=== PATIENT | male | born 1960 | race Caucasian/White ===

== ENCOUNTER 2017-10-28 19:00 | Inpatient (IN) | payer MEDICARE, MEDICAID ==
[~2017-10-28] VITALS: Ht 172.7 cm; Wt 68.7 kg
[2017-10-28 18:48] VITALS: BP 112/64
[2017-10-28] MEDS ORDERED: HALOPERIDOL 5 MG TABLET PO PRN (20:15)
[2017-10-28] MEDS ORDERED: LORazepam 2 MG TABLET PO PRN (20:15)
[2017-10-28] MEDS ORDERED: ZOLPIDEM TARTRATE 10 MG TABLET PO PRN (20:15)
[2017-10-28] MEDS ORDERED: PALI3TAB5 PO (21:15)
[2017-10-28] MEDS ORDERED: BENA10TA3 PO (21:15)
[2017-10-28] MEDS ORDERED: OLAN20TA20 PO (21:15)
[2017-10-28] MEDS ORDERED: METF1000 PO (21:15)
[2017-10-28] MEDS ORDERED: BENZ1TAB10 PO (21:15)
[2017-10-28] MEDS ORDERED: SIMV10TA6 PO (21:15)
[2017-10-28] MEDS ORDERED: PANT40TA PO (21:15)
[2017-10-28] MEDS ORDERED: DIVA250T4 PO (21:15)
[2017-10-29 04:04] VITALS: BP 120/79
[2017-10-29] MEDS ORDERED: PNEUMOCOCCAL VACCINE POLYVALENT 0.5 ML VIAL [PPSV23] IM ONE (05:00)
[2017-10-29 08:37] VITALS: BP 126/87
[2017-10-29 08:55] LABS: BASOPHILS % (AUTO) 0.3 % (0.0-2.0); EOSINOPHILS % (AUTO) 0.6 % (1.0-6.0); HEMATOCRIT 35.8 % (41-53); HEMOGLOBIN 12.3 g/dL (13.5-17.5); LYMPHOCYTES # (AUTO) 1.3 K/uL (1.0-4.8); LYMPHOCYTES % (AUTO) 27.4 % (22.0-44.0); MEAN CORPUSCULAR HEMOGLOBIN 30.7 pg (26.0-34.0); MEAN CORPUSCULAR HGB CONC 34.5 G/dL (31.0-37.0); MEAN CORPUSCULAR VOLUME 89 fL (80-100); MONOCYTES # (AUTO) 0.5 K/uL (0.1-1.0); MONOCYTES % (AUTO) 9.7 % (2.0-9.0); NEUTROPHILS # (AUTO) 2.9 K/uL (1.8-7.7); PLATELET COUNT (AUTO) 152 K/uL (150-450); RED BLOOD CELL COUNT(AUTO) 4.02 MIL/uL (4.50-5.90); RED CELL DISTRIBUTION WIDTH 13.8 % (11.5-14.5)
[2017-10-29 09:28] LABS: HEMOGLOBIN A1C 10.6 % (4.5-6.2)
[2017-10-29 09:36] LABS: ALANINE AMINOTRANSFERASE 19 U/L (12-78); ALBUMIN 3.2 g/dL (3.4-5.0); ALKALINE PHOSPHATASE 37 U/L (46-116); ANION GAP 5 mmol/L (8-16); ASPARTATE AMINOTRANSFERASE 15 U/L (15-37); BILIRUBIN,TOTAL 0.6 mg/dL (0.1-1.0); CALCIUM, TOTAL 8.8 mg/dL (8.8-10.5); CARBON DIOXIDE 31 mmol/L (22-29); CHLORIDE 105 mmol/L (98-107); CHOL/HDL RATIO 3.1 (4.2-7.3); CHOLESTEROL 129 mg/dL (131-200); CREATININE 0.96 mg/dL (0.60-1.30); FREE T4 (FREE THYROXINE) 0.98 ng/dL (0.76-1.46); GLOMERULAR FILTR. RATE CALC > 60 mL/min (>60); GLUCOSE,RANDOM 124 mg/dL (70-110); HDL CHOLESTEROL 41 mg/dL (40-60); LDL CHOL (CALC.) 73 mg/dL (0-130); POTASSIUM 4.5 mmol/L (3.5-5.1); SODIUM SERUM 141 mmol/L (136-145); THYROID STIMULATING HORMONE 5.95 uIU/mL (0.36-3.74); TRIGLYCERIDES 76 mg/dL (15-150); UREA NITROGEN, BLOOD 22 mg/dL (7-18)
[2017-10-29] MEDS ORDERED: ONDANSETRON HCL 4 MG TABLET PO PRN (10:30)
[2017-10-29] MEDS ORDERED: ALBUTEROL SULFATE HFA 90 MCG/PUFF 8 GM INHALER IH PRN (10:30)
[2017-10-29] MEDS ORDERED: IBUPROFEN 600 MG TABLET PO PRN (10:30)
[2017-10-29] MEDS ORDERED: ACETAMINOPHEN 325 MG TABLET PO PRN (10:30)
[2017-10-29] MEDS ORDERED: BACITRACIN 28.4 GM OINTMENT TP PRN (10:30)
[2017-10-29] MEDS ORDERED: CloNIDine HCL 0.1 MG TABLET PO PRN (10:30)
[2017-10-29] MEDS ORDERED: MAGNESIUM HYDROXIDE SUSPENSION 30 ML UDCUP PO PRN (10:30)
[2017-10-29] MEDS ORDERED: INSULIN LISPRO 100 UNITS/ML SQ PRN (10:30)
[2017-10-29] MEDS ORDERED: GLUCAGON,HUMAN RECOMBINANT 1 MG VIAL IM PRN (10:30)
[2017-10-29] MEDS ORDERED: PETROLATUM,WHITE 71 GM JELLY TP PRN (10:30)
[2017-10-29] MEDS ORDERED: ASPIRIN 325 MG TABLET PO ONE (10:30)
[2017-10-29] MEDS ORDERED: LOPERAMIDE HCL 2 MG CAPSULE PO PRN (10:30)
[2017-10-29] MEDS ORDERED: MAG HYDROX/AL HYDROX/SIMETH ES 30 ML SUSPENSION UDCUP PO PRN (10:30)
[2017-10-29] MEDS ORDERED: BENZOCAINE/MENTHOL LOZENGE MM PRN (10:30)
[2017-10-29] MEDS ORDERED: PALI3 PO (11:28)
[2017-10-29] MEDS ORDERED: OMEP20 PO (11:28)
[2017-10-29] MEDS ORDERED: BENZ1TAB10 PO (11:28)
[2017-10-29] MEDS ORDERED: ASPI81 PO (11:28)
[2017-10-29] MEDS ORDERED: LISI-661 PO (11:28)
[2017-10-29] MEDS ORDERED: SIMV-259 PO (11:28)
[2017-10-29] MEDS ORDERED: DIVA125T2 PO (11:28)
[2017-10-29] MEDS ORDERED: DSS100 PO (11:28)
[2017-10-29] MEDS ORDERED: OLAN10TA3 PO (11:28)
[2017-10-29] MEDS ORDERED: LEVO50 PO (11:28)
[2017-10-29] MEDS ORDERED: DIVA250T25 PO (14:44)
[2017-10-29] MEDS ORDERED: SIMVASTATIN 10 MG TABLET PO SCH (21:00)
[2017-10-30] MEDS ORDERED: LEVOTHYROXINE SODIUM 25 MCG TABLET PO SCH (06:30)
[2017-10-30] MEDS ORDERED: OLANZapine 10 MG TABLET PO SCH (09:00)
[2017-10-30] MEDS ORDERED: DOCUSATE SODIUM 100 MG CAPSULE PO SCH (09:00)
[2017-10-30] MEDS ORDERED: PALIPERIDONE 3 MG ER TABLET PO SCH (09:00)
[2017-10-30] MEDS ORDERED: ASPIRIN 81 MG EC TABLET PO SCH (09:00)
[2017-10-30] MEDS ORDERED: DIVALPROEX SODIUM 250 MG DR TABLET PO SCH (09:00)
[2017-10-30] MEDS ORDERED: BENZTROPINE MESYLATE 1 MG TABLET PO SCH (09:00)
[2017-10-30] MEDS ORDERED: OMEPRAZOLE 20 MG CAPSULE PO SCH (09:00)
[2017-10-30] MEDS ORDERED: BENAZEPRIL HCL 10 MG TABLET PO SCH (09:00)
== END 2017-10-29 11:40 | disposition short-term general hospital (02) | DRG 885 ==
LOC: EDSTATUS 19:00 → B2X 20:15 → EDSTATUS 21:33
PROVIDERS: ADMIT Psychiatry & Neurology Psychiatry; ATTEND Psychiatry & Neurology Psychiatry
DX: F25.9 Schizoaffective disorder, unspecified (principal); E11.65 Type 2 diabetes mellitus with hyperglycemia; R45.851 Suicidal ideations; E03.9 Hypothyroidism, unspecified; I10 Essential (primary) hypertension; I25.119 Atherosclerotic heart disease of native coronary artery with unspecified angina pectoris; I25.2 Old myocardial infarction; I45.10 Unspecified right bundle-branch block; K21.9 Gastro-esophageal reflux disease without esophagitis; K59.00 Constipation, unspecified
CPT/HCPCS: 83036; 84439; 84443

== ENCOUNTER 2017-10-28 20:34 | Emergency (ER) | payer MEDICARE, MEDICAID ==
[~2017-10-28] VITALS: Ht 172.7 cm; Wt 68.2 kg
[2017-10-28 21:02] LABS: GLUCOSE,POINT OF CARE 292 MG/DL (70-110)
[2017-10-28] MEDS ORDERED: DIVA250T4 PO (21:15)
[2017-10-28] MEDS ORDERED: METF1000 PO (21:15)
[2017-10-28] MEDS ORDERED: BENA10TA3 PO (21:15)
[2017-10-28] MEDS ORDERED: ASPIRIN 81 MG CHEWABLE TABLET PO ONE (21:15)
[2017-10-28] MEDS ORDERED: PALI3TAB5 PO (21:15)
[2017-10-28] MEDS ORDERED: PANT40TA PO (21:15)
[2017-10-28] MEDS ORDERED: OLAN20TA20 PO (21:15)
[2017-10-28] MEDS ORDERED: SIMV10TA6 PO (21:15)
[2017-10-28] MEDS ORDERED: BENZ1TAB10 PO (21:15)
[2017-10-28 21:18] LABS: BASOPHILS % (AUTO) 0.4 % (0.0-2.0); EOSINOPHILS % (AUTO) 0.1 % (1.0-6.0); HEMATOCRIT 38.2 % (41-53); HEMOGLOBIN 13.2 g/dL (13.5-17.5); LYMPHOCYTES # (AUTO) 1.3 K/uL (1.0-4.8); LYMPHOCYTES % (AUTO) 19.9 % (22.0-44.0); MEAN CORPUSCULAR HEMOGLOBIN 30.5 pg (26.0-34.0); MEAN CORPUSCULAR HGB CONC 34.7 G/dL (31.0-37.0); MEAN CORPUSCULAR VOLUME 88 fL (80-100); MONOCYTES # (AUTO) 0.6 K/uL (0.1-1.0); MONOCYTES % (AUTO) 8.7 % (2.0-9.0); NEUTROPHILS # (AUTO) 4.6 K/uL (1.8-7.7); NEUTROPHILS % (AUTO) 70.9 % (40.0-70.0); PLATELET COUNT (AUTO) 187 K/uL (150-450); RED BLOOD CELL COUNT(AUTO) 4.33 MIL/uL (4.50-5.90); RED CELL DISTRIBUTION WIDTH 13.4 % (11.5-14.5)
[2017-10-28] MEDS ORDERED: SODIUM CHLORIDE 0.9% 2,000 ML IV ONE (21:20)
[2017-10-28] MEDS ORDERED: ONDANSETRON HCL 4 MG/2 ML VIAL IVP ONE (21:30)
[2017-10-28 21:37] LABS: ANION GAP 7 mmol/L (8-16); CALCIUM, TOTAL 9.7 mg/dL (8.8-10.5); CARBON DIOXIDE 32 mmol/L (22-29); CHLORIDE 97 mmol/L (98-107); CREATININE 1.15 mg/dL (0.60-1.30); GLOMERULAR FILTR. RATE CALC > 60 mL/min (>60); GLUCOSE,RANDOM 320 mg/dL (70-110); POTASSIUM 3.8 mmol/L (3.5-5.1); SODIUM SERUM 136 mmol/L (136-145); UREA NITROGEN, BLOOD 27 mg/dL (7-18)
[2017-10-28 21:38] LABS: B-TYPE NATRIURETIC PEPTIDE 12 pg/mL (0-100)
[2017-10-28 21:42] LABS: ALANINE AMINOTRANSFERASE 22 U/L (12-78); ALBUMIN 3.5 g/dL (3.4-5.0); ALKALINE PHOSPHATASE 43 U/L (46-116); ASPARTATE AMINOTRANSFERASE 16 U/L (15-37); BILIRUBIN,TOTAL 0.7 mg/dL (0.1-1.0); CREATINE KINASE, TOTAL 59 U/L (39-308); LIPASE 178 U/L (73-393); TOTAL PROTEIN, SERUM 7.7 g/dL (6.4-8.2)
[2017-10-29] MEDS ORDERED: SODIUM CHLORIDE 0.9% 1,000 ML IV ONE (00:15)
[2017-10-29 01:06] LABS: APPEARANCE,URINE CLEAR (CLEAR); BILIRUBIN,URINE NEGATIVE (NEGATIVE); GLUCOSE, URINE (UA) >=1000 mg/dL (NEGATIVE); KETONES,URINE TRACE mg/dL (NEGATIVE); LEUKOCYTE ESTERASE ,URINE NEGATIVE (NEGATIVE); NITRATE,URINE NEGATIVE (NEGATIVE); OCCULT BLOOD,URINE NEGATIVE (NEGATIVE); PH,URINE 6.5 (5.0-8.0); PROTEIN,URINE NEGATIVE (NEGATIVE)
[2017-10-29 01:11] LABS: AMPHET/METH SCREEN,URINE NEGATIVE (NEGATIVE); BARBITURATE SCREEN, URINE NEGATIVE (NEGATIVE); BENZODIAZEPINES SCREEN,URINE NEGATIVE (NEGATIVE); CANNABINOID SCREEN,URINE NEGATIVE (NEGATIVE); COCAINE SCREEN,URINE NEGATIVE (NEGATIVE); METHADONE SCREEN, URINE NEGATIVE (NEGATIVE); OPIATE SCREEN,URINE NEGATIVE (NEGATIVE); PHENCYCLIDINE SCREEN,URINE NEGATIVE (NEGATIVE)
[2017-10-29 01:14] VITALS: BP 110/68
[2017-10-29 01:28] LABS: GLUCOSE,POINT OF CARE 108 MG/DL (70-110)
[2017-10-29 01:29] LABS: BACTERIA,URINE None Seen /HPF (None Seen); RBC,URINE None Seen /HPF (0-2); WBC,URINE 0-2 /HPF (0-5)
[2017-10-29 01:30] LABS: SQUAMOUS EPITHELIAL CELL,UR None Seen /LPF (None Seen)
[2017-10-29 03:52] LABS: GLUCOMETER DEV NAME(LOC) BV2S; GLUCOSE,POINT OF CARE 189 MG/DL (70-110)
[2017-10-29] MEDS ORDERED: BENZ1TAB10 PO (11:28)
[2017-10-29] MEDS ORDERED: ASPI81 PO (11:28)
[2017-10-29] MEDS ORDERED: LEVO50 PO (11:28)
[2017-10-29] MEDS ORDERED: DSS100 PO (11:28)
[2017-10-29] MEDS ORDERED: OMEP20 PO (11:28)
[2017-10-29] MEDS ORDERED: PALI3 PO (11:28)
[2017-10-29] MEDS ORDERED: OLAN10TA3 PO (11:28)
[2017-10-29] MEDS ORDERED: DIVA125T2 PO (11:28)
[2017-10-29] MEDS ORDERED: LISI-661 PO (11:28)
[2017-10-29] MEDS ORDERED: SIMV-259 PO (11:28)
[2017-10-29] MEDS ORDERED: DIVA250T25 PO (14:44)
== END 2017-10-29 03:30 | disposition home or self-care (01) ==
LOC: EMS 20:35
DX: E86.0 Dehydration (principal); R07.9 Chest pain, unspecified; F20.9 Schizophrenia, unspecified; K21.9 Gastro-esophageal reflux disease without esophagitis; I25.10 Atherosclerotic heart disease of native coronary artery without angina pectoris; E11.9 Type 2 diabetes mellitus without complications; I25.2 Old myocardial infarction; I20.9 Angina pectoris, unspecified; Z98.62 Peripheral vascular angioplasty status
CPT/HCPCS: 36415; 71045; 80053; 80307; 81001; 82550; 82962; 83690; 83880; 84484; 85025; 93005; 96361; 96374; 99285; J2405; J7030

== ENCOUNTER 2017-10-29 11:49 | Inpatient (IN) | payer MEDICARE, MEDICAID ==
[~2017-10-29] VITALS: Ht 172.7 cm; Wt 69.3 kg
[~2017-10-29 11:49] MED LIST: ASPI81 PO; BENA10TA3 PO; BENZ1TAB10 PO; DIVA125T2 PO; DIVA250T4 PO; DSS100 PO; LEVO50 PO; LISI-661 PO; METF1000 PO; OLAN10TA3 PO; OLAN20TA20 PO; OMEP20 PO; PALI3 PO; PALI3TAB5 PO; PANT40TA PO; SIMV-259 PO; SIMV10TA6 PO
[2017-10-29 12:11] VITALS: BP 126/81
[2017-10-29] MEDS ORDERED: DEXTROSE 50%-WATER 25 GM/50 ML SYRINGE IVP PRN (14:30)
[2017-10-29] MEDS ORDERED: DIVA250T25 PO (14:44)
[2017-10-29 14:58] LABS: ANION GAP 5 mmol/L (8-16); CALCIUM, TOTAL 8.5 mg/dL (8.8-10.5); CARBON DIOXIDE 28 mmol/L (22-29); CHLORIDE 105 mmol/L (98-107); CREATININE 0.76 mg/dL (0.60-1.30); GLOMERULAR FILTR. RATE CALC > 60 mL/min (>60); GLUCOSE,RANDOM 133 mg/dL (70-110); POTASSIUM 3.9 mmol/L (3.5-5.1); SODIUM SERUM 138 mmol/L (136-145); UREA NITROGEN, BLOOD 19 mg/dL (7-18)
[2017-10-29 15:22] VITALS: BP 125/79
[2017-10-29] MEDS: INSULIN LISPRO 100 UNITS/ML SQ PRN ×2 (17:49→20:39)
[2017-10-29 18:12] LABS: GLUCOMETER DEV NAME(LOC) 5N 1P; GLUCOSE,POINT OF CARE 165 MG/DL (70-110)
[2017-10-29 19:19] VITALS: BP 111/71
[2017-10-29 23:07] VITALS: BP 124/87
[2017-10-30 03:56] VITALS: BP 119/81
[2017-10-30] MEDS: LEVOTHYROXINE SODIUM 50 MCG TABLET PO SCH (05:58)
[2017-10-30 06:43] LABS: BASOPHILS % (AUTO) 0.7 % (0.0-2.0); EOSINOPHILS % (AUTO) 3.3 % (1.0-6.0); HEMATOCRIT 34.9 % (41-53); HEMOGLOBIN 12.1 g/dL (13.5-17.5); LYMPHOCYTES # (AUTO) 1.8 K/uL (1.0-4.8); LYMPHOCYTES % (AUTO) 43.2 % (22.0-44.0); MEAN CORPUSCULAR HEMOGLOBIN 30.9 pg (26.0-34.0); MEAN CORPUSCULAR HGB CONC 34.8 G/dL (31.0-37.0); MEAN CORPUSCULAR VOLUME 89 fL (80-100); MONOCYTES # (AUTO) 0.3 K/uL (0.1-1.0); MONOCYTES % (AUTO) 7.4 % (2.0-9.0); NEUTROPHILS # (AUTO) 1.9 K/uL (1.8-7.7); NEUTROPHILS % (AUTO) 45.4 % (40.0-70.0); PLATELET COUNT (AUTO) 144 K/uL (150-450); RED BLOOD CELL COUNT(AUTO) 3.93 MIL/uL (4.50-5.90); RED CELL DISTRIBUTION WIDTH 13.7 % (11.5-14.5)
[2017-10-30 07:03] LABS: ANION GAP 7 mmol/L (8-16); CALCIUM, TOTAL 8.6 mg/dL (8.8-10.5); CARBON DIOXIDE 27 mmol/L (22-29); CHLORIDE 105 mmol/L (98-107); CREATINE KINASE, TOTAL 39 U/L (39-308); CREATININE 0.75 mg/dL (0.60-1.30); GLOMERULAR FILTR. RATE CALC > 60 mL/min (>60); GLUCOSE,RANDOM 138 mg/dL (70-110); POTASSIUM 3.9 mmol/L (3.5-5.1); SODIUM SERUM 139 mmol/L (136-145); UREA NITROGEN, BLOOD 18 mg/dL (7-18)
[2017-10-30 07:17] VITALS: BP 113/77
[2017-10-30 07:43] LABS: GLUCOMETER DEV NAME(LOC) 5S 1M; GLUCOSE,POINT OF CARE 195 MG/DL (70-110)
[2017-10-30 07:43] LABS: GLUCOMETER DEV NAME(LOC) 5S 1M; GLUCOSE,POINT OF CARE 131 MG/DL (70-110)
[2017-10-30] MEDS: ASPIRIN 81 MG CHEWABLE TABLET PO SCH (08:00)
[2017-10-30] MEDS: DIVALPROEX SODIUM 250 MG DR TABLET PO SCH (08:00)
[2017-10-30] MEDS: BENZTROPINE MESYLATE 1 MG TABLET PO SCH (08:00)
[2017-10-30] MEDS: OMEPRAZOLE 20 MG CAPSULE PO SCH (08:00)
[2017-10-30] MEDS: LISINOPRIL 10 MG TABLET PO SCH (08:00)
[2017-10-30] MEDS: PALIPERIDONE 3 MG ER TABLET PO SCH (08:00)
[2017-10-30] MEDS: SIMVASTATIN 10 MG TABLET PO SCH (08:00)
[2017-10-30] MEDS: OLANZapine 10 MG TABLET PO SCH (08:01)
[2017-10-30] MEDS: DOCUSATE SODIUM 100 MG CAPSULE PO SCH (08:05)
[2017-10-30] MEDS ORDERED: MAGNESIUM SULFATE 4 GM/WATER 100 ML IV PRN (11:00)
[2017-10-30] MEDS ORDERED: MAGNESIUM SULFATE 2 GM in DEXTROSE 5%-WATER 50 ML IV PRN (11:00)
[2017-10-30 11:33] VITALS: BP 116/74
[2017-10-30] MEDS: MAGNESIUM OXIDE 400 MG TABLET PO PRN ×3 (12:14→22:11)
[2017-10-30 14:58] LABS: GLUCOMETER DEV NAME(LOC) 5N 1P; GLUCOSE,POINT OF CARE 116 MG/DL (70-110)
[2017-10-30] MEDS: INSULIN LISPRO 100 UNITS/ML SQ PRN ×2 (17:48→20:42)
[2017-10-30 19:24] VITALS: BP 104/71
[2017-10-30 21:58] LABS: GLUCOMETER DEV NAME(LOC) 5N 1P; GLUCOSE,POINT OF CARE 242 MG/DL (70-110)
[2017-10-30 23:59] VITALS: BP 108/74
[2017-10-31] VITALS (9 sets, daily range): BP systolic 106–120; BP diastolic 65–87
[2017-10-31] MEDS: LEVOTHYROXINE SODIUM 50 MCG TABLET PO SCH (05:15)
[2017-10-31 07:32] LABS: GLUCOMETER DEV NAME(LOC) 5N 1P; GLUCOSE,POINT OF CARE 115 MG/DL (70-110)
[2017-10-31] MEDS: PALIPERIDONE 3 MG ER TABLET PO SCH (08:31)
[2017-10-31] MEDS: DIVALPROEX SODIUM 250 MG DR TABLET PO SCH (08:31)
[2017-10-31] MEDS: DOCUSATE SODIUM 100 MG CAPSULE PO SCH (08:31)
[2017-10-31] MEDS: BENZTROPINE MESYLATE 1 MG TABLET PO SCH (08:31)
[2017-10-31] MEDS: SIMVASTATIN 10 MG TABLET PO SCH (08:32)
[2017-10-31] MEDS: OLANZapine 10 MG TABLET PO SCH (08:32)
[2017-10-31] MEDS: OMEPRAZOLE 20 MG CAPSULE PO SCH (08:32)
[2017-10-31] MEDS ORDERED: SESTAMIBI TC99M/UD ISOTOPE 1 EA INJ INJ ONE ×2 (09:25→13:25)
[2017-10-31 10:42] LABS: GLUCOMETER DEV NAME(LOC) 5S 1M; GLUCOSE,POINT OF CARE 190 MG/DL (70-110)
[2017-10-31] MEDS ORDERED: REGADENOSON 0.4 MG/5 ML PF SYRINGE IVP ONE ×2 (13:23→14:23)
[2017-10-31] MEDS: ASPIRIN 81 MG CHEWABLE TABLET PO SCH (14:24)
[2017-10-31] MEDS: LISINOPRIL 10 MG TABLET PO SCH (14:25)
[2017-10-31 14:28] LABS: GLUCOMETER DEV NAME(LOC) 5N 1P; GLUCOSE,POINT OF CARE 128 MG/DL (70-110)
[2017-10-31] MEDS: INSULIN LISPRO 100 UNITS/ML SQ PRN ×2 (17:46→20:40)
[2017-10-31] MEDS ORDERED: NITROGLYCERIN 0.3 MG SUBLINGUAL TABLET #100 SL PRN (20:00)
[2017-10-31 23:03] LABS: GLUCOMETER DEV NAME(LOC) 5S 1M; GLUCOSE,POINT OF CARE 201 MG/DL (70-110)
[2017-11-01 04:59] VITALS: BP 111/64
[2017-11-01] MEDS: LEVOTHYROXINE SODIUM 50 MCG TABLET PO SCH (05:44)
[2017-11-01] MEDS: INSULIN LISPRO 100 UNITS/ML SQ PRN (05:50)
[2017-11-01 07:23] VITALS: BP 107/72
[2017-11-01] MEDS: DOCUSATE SODIUM 100 MG CAPSULE PO SCH (08:09)
[2017-11-01] MEDS: BENZTROPINE MESYLATE 1 MG TABLET PO SCH (08:09)
[2017-11-01] MEDS: DIVALPROEX SODIUM 250 MG DR TABLET PO SCH (08:09)
[2017-11-01] MEDS: ASPIRIN 81 MG CHEWABLE TABLET PO SCH (08:09)
[2017-11-01] MEDS: OLANZapine 10 MG TABLET PO SCH (08:10)
[2017-11-01] MEDS: PALIPERIDONE 3 MG ER TABLET PO SCH (08:10)
[2017-11-01] MEDS: LISINOPRIL 10 MG TABLET PO SCH (08:10)
[2017-11-01] MEDS: OMEPRAZOLE 20 MG CAPSULE PO SCH (08:10)
[2017-11-01] MEDS: SIMVASTATIN 10 MG TABLET PO SCH (08:10)
[2017-11-01 09:42] LABS: GLUCOMETER DEV NAME(LOC) 5N 1P; GLUCOSE,POINT OF CARE 275 MG/DL (70-110)
[2017-11-01 11:30] VITALS: BP 102/66
[2017-11-01] MEDS ORDERED: INSU100V SQ (12:41)
[2017-11-01] MEDS ORDERED: NITR.3 SL (12:42)
[2017-11-01 15:17] VITALS: BP 100/62
[2017-11-02 06:03] LABS: GLUCOMETER DEV NAME(LOC) 5S 1M; GLUCOSE,POINT OF CARE 175 MG/DL (70-110)
[2017-11-02 06:03] LABS: GLUCOMETER DEV NAME(LOC) 5S 1M; GLUCOSE,POINT OF CARE 133 MG/DL (70-110)
== END 2017-11-01 17:30 | disposition home health service (06) | DRG 303 ==
LOC: 5S 12:15
PROVIDERS: ADMIT Internal Medicine; ATTEND Internal Medicine
DX: I25.119 Atherosclerotic heart disease of native coronary artery with unspecified angina pectoris (principal); E11.65 Type 2 diabetes mellitus with hyperglycemia; E03.9 Hypothyroidism, unspecified; K21.9 Gastro-esophageal reflux disease without esophagitis; I10 Essential (primary) hypertension; K59.00 Constipation, unspecified; F25.0 Schizoaffective disorder, bipolar type; F41.9 Anxiety disorder, unspecified; I25.2 Old myocardial infarction; I45.10 Unspecified right bundle-branch block; Z59.0 Homelessness; Z79.899 Other long term (current) drug therapy
CPT/HCPCS: 78452; 82962; 83735; 84100; 93005; 93017; 93306; A9500; J2785